=== PATIENT | male | born 1990 | race African-American/Black ===

== ENCOUNTER 2016-09-24 07:15 | Emergency (ER) | payer SELFPAY ==
[2016-09-24 09:16] LABS: BASOPHILS 0.1 % (0.0-2.0); EOSINOPHILS 2.1 % (0-7); HEMATOCRIT 39.4 % (42.0-54.0); HEMOGLOBIN 13.2 g/dL (13.5-17.5); IMMATURE GRANULOCYTES 0.3 % (0-5); LYMPHOCYTES 26.4 % (15-50); MCH 33.4 pg (26.0-34.0); MCHC 33.5 g/dL (31.0-37.0); MCV 99.7 fL (80.0-100.0); MEAN PLATELET VOLUME 8.5 fL (7.4-10.4); MONOCYTES 7.9 % (2-11); NEUTROPHILS 63.2 % (40-80); PLATELET COUNT 193 10x3/uL (130-400); RBC 3.95 10x6/uL (4.20-6.10); RDW 12.8 % (11.5-14.5)
[2016-09-24 09:55] LABS: ALBUMIN 3.7 g/dL (3.4-5.0); ALKALINE PHOSPHATASE 73 U/L (46-116); ALT (SGPT) 29 U/L (10-68); CALC OSMOLALITY 281 mosm/kg (275-300); CALCIUM 8.5 mg/dL (8.5-10.1); CARBON DIOXIDE 26.3 mmol/L (21.0-32.0); CHLORIDE - SERUM 107 mmol/L (98-107); CREATININE - SERUM 0.9 mg/dL (0.6-1.3); GLUCOSE 94 mg/dL (74-106); POTASSIUM - SERUM 4.1 mmol/L (3.5-5.1); PROTEIN - SERUM 6.9 g/dL (6.4-8.2); SODIUM 142 mmol/L (136-145); UREA NITROGEN 11 mg/dL (7-18); eGFR NON AFRICAN AMERICAN > 90 mL/min (90-120)
== END 2016-09-24 10:34 | disposition home or self-care (01) ==
LOC: D.ER 07:15
PROVIDERS: Family Medicine
DX: B34.9 Viral infection, unspecified (principal)

== ENCOUNTER 2016-12-29 13:12 | Emergency (ER) | payer MEDICAID | END 2016-12-29 16:46 | disposition home or self-care (01) | LOC: D.ER 13:12 | DX: S83.92XA Sprain of unspecified site of left knee, initial encounter (principal); X58.XXXA Exposure to other specified factors, initial encounter; Y93.67 Activity, basketball; Y92.830 Public park as the place of occurrence of the external cause; F17.200 Nicotine dependence, unspecified, uncomplicated ==

== ENCOUNTER 2017-09-03 11:26 | Emergency (ER) | payer MEDICAID | END 2017-09-03 13:00 | disposition home or self-care (01) | LOC: D.ER 11:26 | DX: S62.102A Fracture of unspecified carpal bone, left wrist, initial encounter for closed fracture (principal); W22.01XA Walked into wall, initial encounter; Y93.89 Activity, other specified; Y92.019 Unspecified place in single-family (private) house as the place of occurrence of the external cause; F17.200 Nicotine dependence, unspecified, uncomplicated ==

== ENCOUNTER 2018-03-02 12:42 | Emergency (ER) | payer MEDICAID ==
[~2018-03-02] VITALS: Ht 182.9 cm; Wt 66.8 kg
[2018-03-02 13:08] VITALS: Ht 182.9 cm; Wt 66.8 kg
[2018-03-02 13:54] LABS: BASOPHILS 0 % (0-2); EOSINOPHILS 1.1 % (0-7); HEMATOCRIT 41.2 % (42.0-54.0); HEMOGLOBIN 14.4 g/dL (13.5-17.5); IMMATURE GRANULOCYTES 0.1 % (0-5); LYMPHOCYTES 13.3 % (15-50); MCH 34.9 pg (26.0-34.0); MCV 99.8 fL (80.0-100.0); MONOCYTES 9.1 % (2-11); NEUTROPHILS 76.4 % (40-80); PLATELET COUNT 184 10x3/uL (130-400); RBC 4.13 10x6/uL (4.20-6.10); RDW 13.2 % (11.5-14.5); WBC 8.2 10x3/uL (4.8-10.8)
[2018-03-02 14:07] LABS: ALBUMIN 4.2 g/dL (3.4-5.0); ALKALINE PHOSPHATASE 74 U/L (46-116); ALT (SGPT) 61 U/L (10-68); AMYLASE - SERUM 61 U/L (25-115); BILIRUBIN - TOTAL 0.22 mg/dL (0.2-1.3); CALC OSMOLALITY 283 mosm/kg (275-300); CARBON DIOXIDE 27.3 mmol/L (21.0-32.0); CHLORIDE - SERUM 105 mmol/L (98-107); CREATININE - SERUM 0.8 mg/dL (0.6-1.3); GLUCOSE 128 mg/dL (74-106); LIPASE 84 U/L (73-393); PROTEIN - SERUM 7.5 g/dL (6.4-8.2); SODIUM 142 mmol/L (136-145); UREA NITROGEN 9 mg/dL (7-18); eGFR NON AFRICAN AMERICAN > 90 mL/min (90-120)
[2018-03-02 14:09] LABS: APPEARANCE CLEAR (CLEAR); BILIRUBIN NEGATIVE (NEGATIVE); COLOR YELLOW (YELLOW); GLUCOSE NEGATIVE (NEGATIVE); KETONE NEGATIVE (NEGATIVE); NITRITE NEGATIVE (NEGATIVE); PROTEIN NEGATIVE (NEGATIVE); UROBILINOGEN NORMAL (NORMAL)
[2018-03-02 14:10] LABS: BACTERIA FEW /hpf (NONE SEEN); EPITHELIAL CELLS 0-5 /hpf (0-5); MUCUS >1+ /lpf (NONE SEEN); RED CELLS - URINE 0-5 /hpf (0-5); WHITE CELLS - URINE 0-5 /hpf (0-5)
[2018-03-02] MEDS ORDERED: LOMOTIL TABLET1 TAB PO (16:23)
[2018-03-02 17:16] VITALS: BP 134/60
== END 2018-03-02 17:17 | disposition home or self-care (01) ==
LOC: D.ER 12:42
PROVIDERS: Family Medicine
DX: R10.32 Left lower quadrant pain (principal); R10.31 Right lower quadrant pain; F17.200 Nicotine dependence, unspecified, uncomplicated